=== PATIENT | female | born 1985 | race African-American/Black ===

== ENCOUNTER 2020-05-21 10:29 | Emergency (ER) | payer OTHER, SELFPAY ==
--- NOTE | ~2020-05-21 | XR_ITS ---
EXAMINATION: XR wrist RT min 3V INDICATION: Right wrist pain TECHNIQUE: Four views of the right wrist are obtained. COMPARISON: None available FINDINGS: There is no fracture, dislocation, or subluxation. The bones, soft tissues, and joint space s are normal. IMPRESSION: 1. No acute osseous abnormality. Reviewed, dictated and finalized at location A.
[2020-05-21 10:48] VITALS: BP 127/92; PULSE 84; RESP 18; TEMP 36.6; O2SAT 99
[2020-05-21] MEDS: IBUPROFEN 600 MG TABLET PO (11:06)
--- NOTE | 2020-05-21 11:30 | ED.GENADULT ---
HPI - General Adult General Chief complaint: Extremity Injury, Upper <Akash Casiano PA-C - Last Filed: 05/21/20 11:32> Stated complaint: RT Wrist injury <Akash Casiano PA-C - Last Filed: 05/21/20 11:32> Time Seen by Provider: 05/21/20 10:34 <Akash Casiano PA-C - Last Filed: 05/21/20 11:32> Source: patient <Akash Casiano PA-C - Last Filed: 05/21/20 11:32> Mode of arrival: ambulatory <Akash Casiano PA-C - Last Filed: 05/21/20 11:32> Limitations: no limitations <Akash Casiano PA-C - Last Filed: 05/21/20 11:32> History of Present Illness HPI narrative: Patient is a 35-year-old female who presents to emergency department for evaluation of right wrist injury patient was playing volleyball when she fell on her outstretched right wrist has since had pain to the wrist joint worse with activity and movement patient denies other injuries or complaints presents in no distress <Akash Casiano PA-C - Last Filed: 05/21/20 11:32> Related Data Allergies/adverse reactions: Allergies Allergy/AdvReac Type Severity Reaction Status Date / Time No Known Allergies Allergy Unverified 05/21/20 10:53 <Akash Casiano PA-C - Last Filed: 05/21/20 11:32> Review of Systems Review of Systems: All systems reviewed & are unremarkable except as noted in HPI and below <Akash Casiano PA-C - Last Filed: 05/21/20 11:32> [facility] Surgical History Surgical History: Surgical History Hx of tonsillectomy <Akash Casiano PA-C - Last Filed: 05/21/20 11:32> Social History Social History: Social History (Updated 05/21/20 @ 11:31 by Akash Casiano PA-C) Smoking status: Never smoker Gender identity (if verbalized by the patient): Female <Akash Casiano PA-C - Last Filed: 05/21/20 11:32> Exam Narrative: Exam Narrative: GENERAL: Well-appearing, well-nourished, and in no acute distress. HEAD: Normocephalic, atraumatic. EYES: PERRLA and EOMI. ENT: Nares clear, no rhinorrhea or epistaxis. Mucous membranes moist. Oropharynx without tonsillar hypertrophy exudate or other lesions. Bilateral TMs pearly mendiola nonbulging EXTREMITIES: Tenderness of the right wrist joint throughout with no deformities noted SKIN: Warm, dry, no rash. NEURO: No focal deficits. Alert and oriented x3. Neurovascularly intact PSYCH: Normal mood and affect. <Akash Casiano PA-C - Last Filed: 05/21/20 11:32> Course Course Emergency Course: Patient in the room in no distress aware of case findings treatment plan and diagnosis <Akash Casiano PA-C - Last Filed: 05/21/20 11:32> Vital Signs Vital signs: Vital Signs Temperature 36.6 C 05/21/20 10:48 Pulse Rate 84 05/21/20 10:48 Respiratory Rate 18 05/21/20 10:48 Blood Pressure 127/92 H 05/21/20 10:48 Pulse Oximetry 99 05/21/20 10:48 Temperature 36.6 C 05/21/20 10:48 Pulse Rate 86 05/21/20 11:37 Respiratory Rate 18 05/21/20 11:37 Blood Pressure 130/84 05/21/20 11:37 Pulse Oximetry 99 05/21/20 11:37 <Akash Casiano PA-C - Last Filed: 05/21/20 11:32> Vital Signs Temperature 36.6 C 05/21/20 10:48 Pulse Rate 84 05/21/20 10:48 Respiratory Rate 18 05/21/20 10:48 Blood Pressure 127/92 H 05/21/20 10:48 Pulse Oximetry 99 05/21/20 10:48 Temperature 36.6 C 05/21/20 10:48 Pulse Rate 86 05/21/20 11:37 Respiratory Rate 18 05/21/20 11:37 Blood Pressure 130/84 05/21/20 11:37 Pulse Oximetry 99 05/21/20 11:37 <Hattie Crawford MD - Last Filed: 05/21/20 13:55> Medical Decision Making MDM Narrative Medical decision making narrative: Patients injury or pain is consistent with musculoskeletal etiology. No signs of neurological or vascular compromise on exam. Compartments and tisues are soft without signs of compartment syndrome. Pain is felt appropriate for further evaluation on an outpatie
[2020-05-21 11:37] VITALS: BP 130/84; PULSE 86; RESP 18; O2SAT 99
== END 2020-05-21 11:44 | disposition home or self-care (01) ==
PROVIDERS: Emergency Provider Emergency Medicine
DX: S63.501A Unspecified sprain of right wrist, initial encounter (principal); W01.0XXA Fall on same level from slipping, tripping and stumbling without subsequent striking against object, initial encounter
CPT/HCPCS: 73110; 99283; A9270

== ENCOUNTER 2021-03-19 07:20 | Emergency (ER) | payer OTHER, SELFPAY ==
[2021-03-19] VITALS (18 sets, daily range): BP systolic 120–139; BP diastolic 67–89; PULSE 61–75; RESP 10–21; TEMP 36.8; O2SAT 97–100
--- NOTE | ~2021-03-19 | XR_ITS ---
XR chest 2V DATE: 03/19/2021 08:01 INDICATION: Right sharp chest pain for one day TECHNIQUE: PA and lateral views COMPARISON: None FINDINGS: Normal heart size. No hilar or mediastinal enlargement. No pulmonary infiltrate or consolid ation, pleural effusion or pulmonary vascular congestion or pneumothorax. Included skeletal structure s are unremarkable other than mild dextroscoliosis of the thoracolumbar spine. IMPRESSION: No active cardiopulmonary disease Reviewed, dictated and finalized at location A.
--- NOTE | 2021-03-19 07:34 | ECG_ITS ---
Measurements Intervals [place] Rate: 75 P: 59 NM: 194 QRS: 15 QRSD: 97 T: 40 QT: 369 QTc: 412 Interpretive Statements SINUS RHYTHM BASELINE ARTIFACT- I, II, III, AVR, AVL, V1-V6 NORMAL ECG Electronically Signed On 03-19-2021 9:46:08 CDT by Cirilo Coto D.O.
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
[2021-03-19 07:52] LABS: Basophils Percent Auto 0.4 % (0.2-1.2); Eosinophils Absolute Auto 0.1 K/mm3 (0-0.3); Eosinophils Percent Auto 1.8 % (0-4.4); Hemoglobin 11.2 g/dL (12.0-15.0); Immature Granulocyte Absolute 0.01 K/mm3 (0.00-0.031); Immature Granulocyte Percent A 0.2 % (0-0.5); Lymphocytes Absolute Auto 2.04 K/mm3 (0.9-3.2); Lymphocytes Percent Auto 37.6 % (18.3-44.2); Mean Corpuscular HGB Conc 30.3 g/dl (32-36); Mean Corpuscular Hemoglobin 26.5 pg (26-34); Mean Corpuscular Volume 87.7 fl (80-100); Monocytes Absolute Auto 0.5 K/mm3 (0.1-0.6); Monocytes Percent Auto 8.7 % (2.6-8.5); Neutrophils Absolute Auto 2.8 K/mm3 (1.3-6.7); Neutrophils Percent Auto 51.3 % (45.5-73.1); Platelet Count Result 246 k/mm3 (150-375); Red Blood Count 4.22 M/mm3 (4.2-5.4); Red Cell Distribution Width 15.6 % (11.5-14.5); White Blood Count 5.4 K/mm3 (4.5-10.0)
[2021-03-19 07:57] LABS: Anion Gap 8 mmol/L (8-16); Blood Urea Nitrogen 8 mg/dL (7-17); Calcium 8.8 mg/dL (8.4-10.2); Carbon Dioxide 25 mmol/L (22-30); Chloride 108 mmol/L (98-107); Estimated CRCL calculation 150 ml/min; Estimated Glomerular Filt Rate > 60; Glucose 96 mg/dL (65-105); Sodium 141 mmol/L (137-145)
[2021-03-19 07:58] LABS: Prothrombin Time 12.8 Seconds (11.1-14.7)
[2021-03-19 07:59] LABS: Partial Thromboplastin Time 31.9 SECONDS (22.3-36.8)
[2021-03-19 08:09] LABS: Troponin I < 0.012 ng/mL (0.000-0.034)
--- NOTE | 2021-03-19 09:06 | PC.NURSE ---
d-dimer unreceived x 2 per lab. Assistant Finance Director called to redraw the blue top.
[2021-03-19 09:36] LABS: D Dimer 0.38 ug/mL (<0.48)
[2021-03-19 11:00] LABS: Troponin I < 0.012 ng/mL (0.000-0.034)
--- NOTE | 2021-03-19 11:31 | PC.NURSE ---
assumed care of patient
== END 2021-03-19 12:02 | disposition home or self-care (01) ==
PROVIDERS: Emergency Provider Emergency Medicine; PCP Internal Medicine
DX: R07.89 Other chest pain (principal); R09.1 Pleurisy
CPT/HCPCS: 36415; 71046; 80048; 84484; 85025; 85380; 85610; 85730; 93005; 99284

== ENCOUNTER 2024-04-14 19:28 | Emergency (ER) | payer OTHER, SELFPAY ==
--- NOTE | ~2024-04-14 | US_ITS ---
EXAMINATION: US soft tissue head and neck DATE: 04/14/2024 22:30 INDICATION: Left-sided anterior neck pain and fullness TECHNIQUE: Multiple grayscale and Doppler ultrasound images of the region of concern at the left neck were obtained. COMPARISON: None FINDINGS: Visualized left thyroid appears normal. No pathologically enlarged lymph nodes or other abnormal mass es or fluid collection is identified at the region of concern. IMPRESSION: 1. Unremarkable ultrasound of the left neck. Reviewed, dictated and finalized at location A.
[2024-04-14 19:43] VITALS: BP 127/80; PULSE 88; RESP 20; TEMP 36.2; O2SAT 100
--- NOTE | 2024-04-14 22:21 | ED.URI ---
HPI - URI/Sore Throat General Chief Complaint: Upper Respiratory Infection Stated Complaint: sore throat Time Seen by Provider: 04/14/24 21:10 Source: patient Mode of arrival: ambulatory Limitations: no limitations History of Present Illness HPI Narrative: Patient is a 38-year-old female who presents the ED with report of neck fullness. Patient reports over the last 2 weeks, she has had fullness and tightness in her anterior neck with laying flat. She states she does not feel the fullness when sitting upright, only with laying flat. She reports intermittent pain throughout left-sided neck. States that sx's began initially with mucus and she felt as though something was stuck in her throat. She still feels as though something is occasionally stuck in her throat, but denies cough, congestion, cold symptoms. Denies difficulty breathing or swallowing. Denies sore throat. Denies vomiting or regurgitation of food. States she is concerned for thyroid cancer. Related Data Home Medications Medication Instructions Recorded Confirmed No Home Medications 12/16/21 02/10/24 Allergies Allergy/AdvReac Type Severity Reaction Status Date / Time No Known Allergies Allergy Verified 04/14/24 19:51 Review of Systems Review of Systems: CONSTITUTIONAL: Denies fever, chills, or sweats. ENT: Denies rhinorrhea, congestion, sore throat. RESPIRATORY: Denies cough or dyspnea. GASTROINTESTINAL: Denies abdominal pain, nausea, vomiting MUSCULOSKELETAL: See HPI. NEUROLOGIC: Denies headache, dizziness, numbness, or weakness. 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 Gender identity (if verbalized by the patient): Female Sexual Orientation (if Verbalized by the Patient): Straight or Heterosexual Exam Narrative: GENERAL: Well appearing, morbidly obese with BMI of 46.3, non-toxic, in no acute distress. HEAD: Normocephalic, atraumatic. NECK: Neck is supple. Normal nonpainful ROM. Minimal tenderness throughout L lower anterior cervical region. No appreciable masses, lymphadenopathy, or palpable thyroid abnormalities. ENT: No posterior pharynx erythema. No tonsillar hypertrophy or exudate. Uvula is midline. No stridor/distress. RESPIRATORY: Airway patent, respirations nonlabored. CARDIOVASCULAR: Regular rate and rhythm MUSCULOSKELETAL: Moves all extremities. No gross deformities. SKIN: Warm, dry, normal color. NEURO: A&O X3. Speech clear. PSYCHIATRIC: Intermittently tearful. Normal interaction. Course Vital Signs Vital signs: Vital Signs Temperature 97.2 F L 04/14/24 19:43 Pulse Rate 88 04/14/24 19:43 Respiratory Rate 20 04/14/24 19:43 Blood Pressure 127/80 04/14/24 19:43 Pulse Oximetry 100 04/14/24 19:43 Oxygen Delivery Room Air 04/14/24 19:43 Temperature 98.0 F 04/14/24 22:48 Pulse Rate 80 04/14/24 22:48 Respiratory Rate 20 04/14/24 19:43 Blood Pressure 127/86 04/14/24 22:48 Pulse Oximetry 100 04/14/24 22:48 Oxygen Delivery Room Air 04/14/24 21:17 MDM - URI/Sore Throat MDM Narrative Medical decision making narrative: I had a long discussion with patient about imaging options. Discussed obtaining ultrasound of
[2024-04-14 22:48] VITALS: BP 127/86; PULSE 80; TEMP 36.7; O2SAT 100
== END 2024-04-14 23:23 | disposition home or self-care (01) ==
PROVIDERS: Emergency Provider Physician Assistant
DX: M54.2 Cervicalgia (principal)
CPT/HCPCS: 76536; 99284

== ENCOUNTER 2024-05-10 08:31 | Outpatient (CLI) | payer OTHER, SELFPAY ==
--- NOTE | ~2024-05-10 | MMUS_ITS ---
EXAMINATION: MM diagnostic jazzy BI w yaa, US breast LT limited HISTORY: Palpable left breast TECHNIQUE: Additional 3-D tomosynthesis images of the breasts were performed and synthetic 2-D images were generated. CAD analysis was submitted and interpreted. High resolution Limited left breast ultr asound was performed. COMPARISON: None BREAST PARENCHYMAL COMPOSITION: Not Dense: The breasts are almost entirely fatty. FINDINGS: MAMMOGRAPHIC FINDINGS: There are no suspicious masses, calcifications or architectural distortion in either breast to sugges t malignancy. ULTRASOUND: Limited left breast ultrasound: At 2:00, 10 cm from the nipple in the area of palpable concern there is a 2 mm cyst. No suspicious masses to suggest malignancy. IMPRESSION: 1. No evidence for malignancy in either breast. 2. Routine yearly screening mammogram and regular clinical breast examination are recommended. BI-RADS Category 2: Benign finding(s). Reviewed, dictated and finalized at location B. IMPRESSION: 1. No evidence for malignancy in either breast. 2. Routine yearly screening mammogram and regular clinical breast examination a re recommended. BI-RADS Category 2: Benign finding(s).
== END 2024-05-10 08:32 ==
PROVIDERS: PCP Family Medicine; Visit Provider Student in an Organized Health Care Education/Training Program
DX: N63.20 Unspecified lump in the left breast, unspecified quadrant (principal)
CPT/HCPCS: 76642; 77062; 77066; G0279

== ENCOUNTER 2025-06-27 13:32 | Outpatient (CLI) | payer OTHER, SELFPAY ==
--- NOTE | ~2025-06-27 | MM_ITS ---
EXAMINATION: MM screening jazzy BI w yaa HISTORY: Screening TECHNIQUE: Craniocaudal and mediolateral oblique 3-D tomosynthesis images were obtained and synthetic 2-D images were generated. CAD analysis was submitted and interpreted. COMPARISON: 05/10/2024 BREAST PARENCHYMAL COMPOSITION: There are scattered areas of fibroglandular density. FINDINGS: There is no evidence of suspicious mass, calcification, or architectural distortion to suggest malignancy. There has been no suspicious interval change. IMPRESSION: 1. No mammographic evidence of malignancy. Recommend routine screening mammography in one year. BI-RADS Category 2: Benign finding(s) Reviewed, dictated and finalized at location Q. IMPRESSION: 1. No mammographic evidence of malignancy. Recommend routine screening mammogra phy in one year. BI-RADS Category 2: Benign finding(s)
--- OUTSIDE RECORDS SUMMARY | 2025-06-27 15:30 | XMS_ITS | Patient Health Record ---
Author Organization [facility] Address [address] [place] [address] [place] [id number] Care Team Providers Care Administrative Office Specialist Name Role Phone Jose Armando Welsh MD Primary Care Provider Janet Keith Unavailable [phone] Deidre Crowder Unavailable Allergies No Known Allergies Reason For Referral No Information Medications Medication SIG (Take, Route, Frequency, Duration) Notes Start Date End Date Status Pantoprazole Sodium 40 MG 1 tablet Orall y Once a day for 90 days 06/01/2024 Active Social History Tobacco Use: Social History Observation Description Date Details (start date - stop date) Never Smoker NA - NA Tobacco Use/Smoking Question Answer Notes Are you a nonsmoker Problems Problem Type SNOMED Code ICD Code Onset Dates Problem Status W/U Status Risk Notes Problem 5881549 Gastritis, unspecified, without bleeding (K29.70) Active confirmed Problem 24937690 Duodenitis without bleeding (K29.80) Active confirmed Problem Dysphagia (95614086) Dysphagia (R13.12) Active confirmed Encounters Encounter Location Date Provider Diagnosis [facility], [address] [place] [id number] 07/20/2024 Janet Hartman [facility], [address] [place] [id number] 11/24/2024 Janet Hartman Plan Of Treatment Pending Test Test Name Order Date Upper Endoscopy 05/31/2024 Insurance Providers Payer Name Payer Address Payer Phone Subscriber Number Group Number Insured Name Patient Relationship to Insured Coverage Start Date Coverage End Date [facility] Choice/ choice Plus [id number] [address] [address] [place] [address] [id number] Jean Marie Fenton Self - patient is the insured Medical (General) History Medical History History ICD Code GERD Migraine Headaches Surgical History Surgery Date(Month/Year) Tonsillectomy
--- OUTSIDE RECORDS SUMMARY | 2025-06-27 15:30 | XMS_ITS | Clinical Summary ---
Author Organization [facility] Address [address] [place] [id number] Care Team Providers Care Workforce Investment Act Career Manager Name Role Phone Michele Love MD Primary Care Provider [phone] Allergies Active Allergy Reactions Criticality Noted Date Comments Onion Hives Medium 12/30/2020 Medications multivitamin capsule Take 1 capsule by mouth daily Active EPINEPHrine 0.3 mg/0.3 mL auto-injection syringeIndicati ons:Anaphylaxis Inject 0.3 mL (0.3 mg total) into the muscle as instructed once for 1 dose 1 Syringe Active Active Problems No known active problems Surgical History Surgery Date Site/Laterality Comments SECTION 09/14/2016 - 09/13/2017 Family History Medical History Relation Name Comments Cancer Father Diabetes Father Hypertension Father Diabetes Mother Lupus Mother Rheum arthritis Mother Relation Name Status Comments Father Alive Mother Alive Social History Tobacco Use Types Packs/Day Years Used Date Smoking Tobacco: Never Smokeless Tobacco: Never Personal Safety Answer Date Recorded Getting School Help Needed Not on file 09/15 Comments Unknown Sex and Gender Information Value Date Recorded Sex Assigned at Not on file 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 Gender Identity Not on file Sexual Orientation Not on file Obstetrics History Last Filed Vital Signs Vital Sign Reading Time Taken Comments Blood Pressure 115/89 12/30/2020 4:15 PM CDT Pulse 88 12/30/2020 4:15 PM CDT Temperature 36.4 C (97.5 F) 12/30/2020 2:53 PM CDT Respiratory Rate 16 12/30/2020 4:15 PM CDT Oxygen Saturation 99% 12/30/2020 4:15 PM CDT Inhaled Oxygen Concentration - - Weight 147.4 kg (325 lb) 12/30/2020 2:51 PM CDT Height 172.7 cm (5' 7.99) 12/30/2020 2:51 PM CD T Body Mass Index 49.43 12/30/2020 2:51 PM CDT Plan of Treatment Not on file Insurance [facility]PP[facility] Address: [place] [address] [facility] Address: [facility] [address] [place] [address] [employer] SIG [id number] Care Teams Workforce Investment Act Career Manager Relationship Specialty Start Date End Date Michele Love MD [address] [place] [id number] PCP - General Internal Medicine 10/04/21
--- OUTSIDE RECORDS SUMMARY | 2025-06-27 15:30 | XMS_ITS | Data Portability ---
Author Organization [employer], Main Office Address [address] [place] [address] Assessment No assessment recorded. Plan of Treatment Reminders Order Date Submit Date Provider Last Modified By Organization Details Last Modified Time Details Appointments None recorded. Lab None recorded. Referral None recorded. Procedures None recorded. Surgeries None recorded. Imaging None recorded. Medication Orders cefdinir 300 mg capsule 2022 023 [id number], [address] , [place], [place], [phone], 16:22:43 Patient TargetsNo targets recorded. Patient Instructions Encounter Date Encounter Id Patient Instructions Last Modified By Organization Details Last Modified Time 01/05/2023 [id number] the patient has had a regrowth of some tonsillar tissue inferiorly in both tonsillar fossa. She will be placed on cefdinir and will be re-evaluated at the conclusion. [email or web address] Not available 01/05/2023 16:22:25 Reason for Referral None Reported. Problems Name Problem SNOMED Code Status Onset Date Resolution Date Notes Provider Name and Address Organization Details Recorded Time Chronic tonsillitis 80703302 Active 023 Tony Cevallos MD [address] [facility], [facility] [address], [place], [address] , [employer] 16:21:47 Problem Notes None recorded. Procedures Surgical History Date Name Laterality Status Provider Name and Address Organization Details Recorded Time 06/18/20 20 Date of Last Pap Smear completed Not Available [facility] 11/12/2022 22:04:03 delivery completed Not Available [facility] 11/12/2022 22:04:03 Tonsillectomy completed Not Available [facility] 11/12/2022 22:04:03 Imaging Results None recorded. Procedure Notes None recorded. Medical Equipment None Reported. Allergies No known drug allergies Medications Name Sig Start Date Stop Date Status Note LastModified by Organization Details LastModified Time multivitamin tablet TK 1 T PO ONCE D 06/18 completed Not Available Not Available Not Available nitrofuranto in macrocrystal 100 mg capsule TK 1 C PO Q 6 H FOR 7 DAYS 06/18 completed Not Available Not Available Not Available cefdinir 300 mg capsule Take 1 capsule every 12 hours by oral route. 2022 active Not Available Not Available Not Avai lable Oysco 500/D 500 mg-5 mcg (200 unit) tablet TK 1 T PO BID 06/18 completed Not Available Not Available Not Available Vitals Date Recorded Body weight Body mass index (BMI) Body height Body temperature Provider Name and Address Organization Details Last Updated DateTime 01/05/2023 909499.41 g 51.7 kg/m2 172.72 cm 97.8 [degF] Izzy Tapia CMA [place] [facility] [place] [facility] 01/05/2023 15:55:34 Social History None recorded. Functional Status None recorded. Mental Status None recorded. Family History Relationship Description Onset Age of this Age Resolved Age Notes LastModified by Organization Details LastModified Time Father Cerebrovascu lar accident [id number] Not available 11/12/2022 22:04:04 Father Diabetes mellitus [id number] Not available 11/12/2022 22:04:04 Father Malignant neoplasm of lung [id number] Not available 11/12/2022 22:04:04 Father Cardiac pacemaker in situ [id number] Not available 11/12/2022 22:04:04 Mother Diabetes mellitus [id number] Not available 11/12/2022 22:04:04 Mother Lupus erythematosu s [id number] Not available 11/12/2022 22:04:04 Medical History Condition Response MRSA N ALLERGIES/HAYFEVER N BACK INJECTIONS N LUNG DISEASE/DISORDER N INSOMNIA N HISTORY OF DRUG ABUSE N ESRD N RADIATION / CHEMOTHERAPY N COPD N HIGH CHOLESTEROL / HYPERLIPIDEMIA N HYPERTHYROIDISM N PVD N BLOOD DISEASES N EAR OR HEARING PROBLEMS N HYPOTHYROIDISM N SHINGLES N DEPRESSION (INCLUDING POST ) N BACK / NECK PROBLEMS N HAVE YOU BEEN HOSPITALIZED OR SEEN IN [facility] ER IN THE PAST YEAR ? N FAILED BACK SYNDROME N STROKE/TIA N POLYCYSTIC OVARIES N OBESITY N ANEURYSM N HISTORY WITH COMPLICATIONS WITH ANESTHES IA ? N Do you have Advance directive? N USE OF BLOOD THINNERS N NO SIGNIFICANT PAST MEDICAL HISTORY N DIABETES, TYPE N VON WILLIBRAND'S DISEASE N PARATHYROID DISEASE N ENT N SEASONAL ALLERGIES N HEARTBURN / REFLUX N POST LAMINECTOMY SYNDROME N HEPATITIS / LIVER DISEASE N SLEEP DISORDER N ARTERIAL INSUFFICIENCY N HEADACHES/MIGRAINES N SEIZURES/EPILEPSY N CHF N PACEMAKER N DIZZINESS N HEART DISEASE/HEART PROBLEMS N AIDS/HIV N NEUROPSYCHOLOGICAL N HYPERTENSION N CANCER: SPECIFY N TOURETTE'S N BLOOD TRANSFUSION N ANESTHESIA COMPLICATIONS N ANEMIA/BLOOD DISORDER N CHRONIC EAR INFECTIONS N ATRIAL FIBRILLATION N AUTOIMMUNE DISEASE N TUBERCULOSIS N Gynecological History Statement/Question Response Abnormal Pap Y Date of Last Pap Smear 06/18/2020 Current Control Method Condoms Age at Menarche 11 Obstetrics History GPAL:G 2 P 2 0 0 2 Type Value Full Term 2 Living 2 Total 2 Past Encounters Encounter ID Performer Location Encounter Start Date Encounter Closed Date Diagnosis/Indication Diagnosis SNOMED-CT Code Diagnosis ICD10 Code Diagnosis IMO Codes Diagnosis Note [id number] Tony Cevallos MD [facility] [address] [place] [address] 01/05/2023 15:48:35 01/05/2023 16:25:06 Chronic tonsillitis 23649518 J35.01 Health Concerns Section Related Observation LastModified by Organization Detai ls LastModified Time None Recorded Concern Status LastModified by Organization Details LastModified Time None Recorded Advance Directives Directive None Recorded Payers Insurance Date Sequence Insurance Name Policy Number Policy Fagan Covered Member ID Fagan Member ID Guarantor Name 01/09/2023 1 [employer] ([employer]) [id number] Jean Marie Fenton [id number] Jean Marie Fenton Notes Date Note Type Note Provider Name and Address Organization Details Recorded Time 01/05/2023 text/html this patient reports that for years she has been having 7-8 episodes of sore throat. These have cleared without medication that she has not had a positive strep culture or ER visit. Tony Cevallos MD [address] [place] [address], [facility] [address], [place], [address], [place] [facility] 01/05/2023 16:22:56 OBGyn Episode No OBEpisode recorded.
--- OUTSIDE RECORDS SUMMARY | 2025-06-27 15:30 | XMS_ITS | Clinical Summary ---
Author Organization [facility] Address [address] [place] [address] Care Team Providers Care Produce Department Manager Name Role Phone Unavailable Primary Care Provider Unavailabl e Source Comments [facility],non-owned Affiliates and Associated Physician Practices is amultiple site organization consisting of ambulatory clinics and hospital sitesin [place], [place], [place] and [place]. This disclosure is being madepursuant to the Care Everywhere program and may not contain all information available regarding this patient. Last updated 18.[facility] Social History Tobacco Use Types Packs/Day Years Used Date Smoking Tobacco: Never Assessed Comments Unknown Sex and Gender Information Value Date Recorded Sex Assigned at Not on file Legal Sex Female 5:33 AM [employer] Gender Identity Not on file Sexual Orientation Not on file Plan of Treatment Health Maintenance Due Date Last Done Comments HIV SCREENING 2001 HEPATITIS C SCREENING 04/17/2004 DTAP/TDAP/TD VACCINES (1 - Tdap) 2005 HEPATITIS B VACCINE (1 of 3 - 19+ 3-dose series) 2005 HPV VACCINE (1 - 3-dose SCDM series) 2013 DEPRESSION SCREENING 09/14/2024 COVID-19 VACCINE (1 - 2023-2 5 season) 2025 INFLUENZA VACCINE (#1) 2025 ZOSTER VACCINE (1 of 2) 2036 HIB VACCINE Aged Out No longer eligi ble based on patient's age to complete this topic MENINGOCOCCAL (Group B) VACC INE SHARED DECISION-MAKING Aged Out No longer eligibl e based on patient's age to complete this topic MENINGOCOCCAL GROUPS A/C/Y/W VACCINE Aged Out No longer eligible b ased on patient's age to complete this topic PNEUMOCOCCAL VACCINE Aged Out No long er eligible based on patient's age to complete this topic Insurance [facility]
== END 2025-06-27 13:33 | disposition home or self-care (01) ==
LOC: ANHFOHIMG 13:35
PROVIDERS: PCP Family Medicine; Visit Provider Student in an Organized Health Care Education/Training Program
DX: Z12.31 Encounter for screening mammogram for malignant neoplasm of breast (principal)
CPT/HCPCS: 77063; 77067